=== PATIENT | female | born 1955 | race Caucasian/White ===

== ENCOUNTER 2018-05-01 18:08 | Observation (INO) ==
[2018-05-01] MEDS ORDERED: 0.9 % Sodium Chloride 1,000 ML IVC ONE (18:34)
[2018-05-01] MEDS ORDERED: *HR* FentaNYL (PF) 100 MCG/2 ML VIAL IVP ONE (18:34)
[2018-05-01 18:36] LABS: Bilirubin,Urine Small (Negative); Blood,Urine Large (Negative); Clarity,Urine Cloudy (Clear); Color,Urine Red (Yellow); Glucose,Urine (UA) Normal (Normal); Ketones,Urine 15 mg/dL (Negative); Leukocyte Esterase,Urine Moderate (Negative); Nitrite,Urine Positive (Negative); Protein,Urine 30 mg/dL (Neg-Trace); Specific Gravity,Urine 1.024 (1.010-1.025); Urobilinogen,Urine Normal (Normal)
[2018-05-01 18:37] LABS: Hyaline Casts,Urine None Seen per lpf (None-Few); RBC,Urine TNTC per hpf (0-3); Squamous Epithelial Cell,Urine Many per lpf (None-Few); WBC,Urine 15-30 per hpf (0-3)
--- NOTE | 2018-05-01 18:37 | Emergency Department Note ---
Disposition Clinical Impression: Ureteral calculus, right Urinary tract infection Qualifiers: Urinary tract infection type: site unspecified Hematuria presence: with hematuria Qualified Code(s): N39.0 - Urinary tract infection, site not specified Disposition: Admitted As Inpatient Condition: Good Referrals: NONE,PCP [Primary Care Provider] - Time of Disposition: 20:33 Abdominal Pain HPI - General Stated Complaint: abd pain Time Seen by Provider: 05/01/18 18:12 Source: patient, family () Mode of arrival: ambulatory Limitations: no limitations Nursing Notes Reviewed: Yes Vital Signs Reviewed: Yes - History of Present Illness HPI Narrative: 62-year-old female history of diabetes presents emergency department with abdominal and flank pain. She states around 1400 she felt a sharp pain on the right side of her abdomen that seem to go to her right back. She has been having difficulty urinating. Over the past few days she has has some dysuria and took Pyridium. She reports episode of nausea and vomiting. She denies any fever or recent illness. Denies any chest pain shortness of breath. She reports a history of kidney stones but typically they have been on the left. At that time it was able to pass on its own. She denies any burning with urination or hematuria. Patient gave a urine sample prior to my valuation is states her pain has significantly improved and she believes it may have past. She states is just slightly sore. History of cholecystectomy and total hysterectomy. Pt Subjective Complaint: abdominal pain, flank pain - Related Data Home Medications Medication Instructions Recorded Confirmed Albuterol Neb [Proventil Neb] 2.5 mg IH Q4HR PRN 07/08/16 07/08/16 Cetirizine HCl [Zyrtec] 10 mg PO DAILY 07/08/16 07/08/16 Cholecalciferol (Vitamin D3) 10,000 unit PO MO 07/08/16 07/08/16 [Vitamin D3] Diltiazem [Cardizem] 90 mg PO BID 07/08/16 07/08/16 EPINEPHrine [Epipen] 0.3 mg IJ ONCE PRN 07/08/16 07/08/16 Esomeprazole Magnesium [Nexium] 40 mg PO BID 07/08/16 07/08/16 FLUoxetine HCl [Prozac] 40 mg PO DAILY 07/08/16 07/08/16 Metaxalone [Skelaxin] 800 mg PO TID 07/08/16 07/08/16 Metformin HCl [Glucophage] 1,000 mg PO BID 07/08/16 07/08/16 Montelukast [Singulair] 10 mg PO HS 07/08/16 07/08/16 Phenazopyridine HCl [Pyridium] 200 mg PO TIDAC PRN 07/08/16 07/08/16 hydrOXYzine HCl [Hydroxyzine HCl] 25 mg PO Q8H 07/08/16 07/08/16 hydroCHLOROthiazide 25 mg PO DAILY 07/08/16 07/08/16 [Hydrochlorothiazide] traMADol [Ultram] 50 mg PO TID PRN 07/08/16 07/08/16 Previous Rx's Medication Instructions Recorded traMADol [Ultram] 50 mg PO Q6HR PRN #30 tablet 07/08/16 Allergies Allergy/AdvReac Type Severity Reaction Status Date / Time Amoxicillin [From Augmentin] AdvReac Nausea Verified 07/08/16 12:22 aspirin [From Percodan] AdvReac Itching Verified 07/08/16 12:22 clavulanic acid AdvReac Nausea Verified 07/08/16 12:22 [From Augmentin] Iodinated Contrast- Oral and AdvReac Anaphylaxis Verified 07/08/16 12:22 IV Dye meperidine [From Demerol] AdvReac Itching Verified 07/08/16 12:22 metronidazole [From Flagyl] AdvReac Cramping Verified 07/08/16 12:22 of the Muscles Oxycodone [From Percodan] AdvReac Itching Verified 07/08/16 12:22 sulfamethoxazole AdvReac Difficulty Verified 07/08/16 12:22 [From Bactrim] Breathing tetracaine AdvReac Itching Verified 07/08/16 12:22 trimethoprim [From Bactrim] AdvReac Difficulty Verified 07/08/16 12:22 Breathing All systems ED: reviewed and negative except as stated. Review of Systems: As Per HPI Constitutional: Denies: fever, chills ENT ED: Denies: congestion Cardiovascular: Denies: chest pain Respiratory: Denies: cough, dyspnea Gastrointestinal: Reports: abdominal pain, nausea, vomiting. Denies: diarrhea, melena, hematochezia Genitourinary: Reports: dysuria. Denies: urgency, hematuria Musculoskeletal: Reports: back pain. Denies: neck pain Integumentary: Denies: rash, abrasion Neurological: Denies: headache Abdominal Pain PMH - Past Medical History Medical history: Reports: asthma, DVT, diabetes, hyperlipidemia, hypertension Female Surgical History: Reports: cholecystectomy, hysterectomy Psychiatric history: Reports: depression - Social History Smoking status: Never smoker Alcohol use: Reports: none Drug use: Reports: none Physical Exam - General Limitations: no limitations General appearance: alert, in no apparent distress, obese - Head Head exam: atraumatic, normocephalic, normal inspection - Eye Eye exam: Present: normal appearance, PERRL, EOMI - ENT ENT exam: normal exam, normal oropharynx, mucous membranes moist - Neck Neck exam: Present: normal inspection, full ROM, trachea midline - Chest Chest inspection: Present: normal inspection, symmetric chest wall rise. Absent : tenderness, rash - Respiratory Respiratory exam: Present: normal lung sounds bilaterally. Absent: respiratory distress, wheezes - Cardiovascular Cardiovascular exam: Present: regular rate, normal rhythm, normal heart sounds. Absent: systolic murmur, diastolic murmur - Abdominal Exam Abdominal exam: Present: soft (Obese abdomen), tenderness, normal bowel sounds. Absent: distention, guarding, rebound, rigidity, psoas sign, Mcgregor's sign, Rovsing's sign, tenderness at McBurney's Point Abdominal tenderness: Present: RLQ - Extremities Exam Extremities exam: Present: normal inspection, full ROM, normal capillary refill. Absent: tenderness, pedal edema - Back Exam Back exam: Present: normal inspection, full ROM, CVA tenderness (R). Absent: tenderness, CVA tenderness (L) - Neurological Exam Neurological exam: Present: alert, oriented X3 - Psychiatric Psychiatric exam: Present: normal affect, normal mood - Skin Skin exam: Present: warm, dry, intact, normal color. Absent: rash, cyanosis, diaphoresis Course Course Narrative: Patient presents with pain located in the right lower quadrant. History of cholecystectomy and hysterectomy. Report episode nausea vomiting. History of kidney stone. She had some mild CVA tenderness on examination. She provided urinalysis and reports improvement of pain. Will check some basic labs urinalysis and scan to evaluate for possible kidney stone. Patients in agreement with this plan. Will give her some IV fluids and fentanyl for pain. Patients in agreement with this plan. - Reevaluation(s) Reevaluation #1: Urinalysis appears consistent with infection. She has a white count of 18. No signs of renal insufficiency. She is diabetic and CT showed a 2 mm stone in the right UVJ with right hydronephrosis. Pain is controlled with medication. We discussed the case with the on-call urologist to recommends admission for this infected stone given that she is a diabetic with the elevated leukocytosis. Patient does not appear septic however we will check set of blood culture and lactate. Patient is in agreement with admission. Impression is urinary tract infection and ureteral calculus. Time: 20:29 - Consultations Consultation #1: Consulted with urology on-call Dr. Duggan who agrees for admission for urinary infection and kidney stone. Will consult to the floor and recommend medicine admission. Time: 20:05 Consultation #2: Spoke with on-call hospitalist salvador De Paz to admit for urinary tract infection and ureteral stone. No further orders at this time. Patient has been placed on Levaquin. Time: 20:46 Vital Signs Temperature 97.9 F 05/01/18 20:11 Pulse Rate 64 05/01/18 20:11 Respiratory Rate 18 05/01/18 20:11 Blood Pressure 142/82 05/01/18 20:11 O2 Sat by Pulse Oximetry 95 05/01/18 20:11 Temperature 97.9 F 05/01/18 20:11 Pulse Rate 64 05/01/18 20:11 Respiratory Rate 18 05/01/18 20:11 Blood Pressure 142/82 05/01/18 20:11 O2 Sat by Pulse Oximetry 95 05/01/18 20:11 Oxygen Delivery Oxygen Delivery Room Air Abdominal Pain - MDM Narrative Medical decision making narrative: Patient was discussed with my attending physician who agrees with ED management and final disposition. They independently evaluated the patient. Please refer to their attestation to this encounter for additional information. This note was generated by [employer] voice recognition software and as a result grammatical or spelling errors may occur using this program. - Medical Records Medical records reviewed: Yes I reviewed the patient's medical records. - Lab Data Lab results reviewed: Yes I reviewed the patient's lab results. Result diagrams: 05/01/18 19:15 05/01/18 19:15 Lab Results 05/01/18 05/01/18 05/01/18 Range/Units 18:25 19:15 19:15 WBC 18.7 H (4.3-11.1) K/mcL RBC 4.77 (3.82-4.97) M/mcL Hgb 13.4 (11.5-15.4) g/dL Hct 39.9 (35.3-44.9) % MCV 83.6 (83.0-100.0) fL MCH 28.1 (28.0-33.3) pg MCHC 33.6 (31.6-35.5) g/dL RDW 15.1 H (11.5-14.5) % Plt Count 399 (140-400) K/mcL MPV 10.1 (9.4-12.4) fL Immature Gran % 0.7 (0-4) % Seg Neutrophils % 74.6 % Lymphocytes % 16.7 % Monocytes % 7.1 % Eosinophils % 0.4 % Basophils % 0.5 % Neutrophils # 14.0 H (1.6-8.9) K/mcL Lymphocytes # 3.1 (0.6-4.6) K/mcL Monocytes # 1.3 (0.0-1.3) K/mcL Eosinophils # 0.1 (0.0-0.6) K/mcL Basophils # 0.1 (0.0-0.2) K/mcL Sodium 138 (136-145) mEq/L Potassium 4.6 (3.5-5.1) mEq/L Chloride 102 (98-107) mEq/L Carbon Dioxide 25 (23-29) mEq/L BUN 21 (8-23) mg/dL Creatinine 1.09 (0.60-1.20) mg/dL Est GFR ( Amer) > 60 (> 60) Est GFR (Non-Af Amer) 51 L (> 60) BUN/Creatinine Ratio 19 (6-26) Glucose 150 H (70-105) mg/dL Calculated Osmolality 292 (280-300) Calcium 9.8 (8.6-10.3) mg/dL Total Bilirubin 0.3 (0.3-1.0) mg/dL Direct Bilirubin 0.0 (0.0-0.2) mg/dL Indirect Bilirubin 0.3 (0.0-1.2) mg/dL AST 24 (13-39) Units/L ALT 39 (7-52) Units/L Alkaline Phosphatase 96 (34-104) Units/L Serum Total Protein 6.8 (6.4-8.9) g/dL Albumin 4.7 (3.5-5.7) g/dL Globulin 2.1 L (2.4-3.5) g/dL Albumin/Globulin Ratio 2.2 (1.1-2.2) Lipase 54 (11-82) Units/L Urine Color Red A (Yellow) Urine Clarity Cloudy A (Clear) Urine pH 5.0 (5.0-8.0) pH Units Ur Specific [place] 1.024 (1.010-1.025) Urine Protein 30 H (Neg-Trace) mg/dL Urine Glucose (UA) Normal (Normal) mg/dL Urine Ketones 15 H (Negative) mg/dL Urine Blood Large H (Negative) Urine Nitrite Positive A (Negative) Urine Bilirubin Small H (Negative) Urine Urobilinogen Normal (Normal) mg/dL Ur Leukocyte Esterase Moderate H (Negative) Urine Microscopic RBC TNTC H (0-3) per hpf Urine Microscopic WBC 15-30 H (0-3) per hpf Ur Squamous Epith Cells Many H (None-Few) per lpf Urine Bacteria Few (None-Few) per hpf Hyaline Casts None Seen (None-Few) per lpf Ur Culture Indicated? NO. A (NO) - Radiology Data Radiology results reviewed: Yes I reviewed the patient's radiology results. Abdomen/Pelvis CT 05/01/18 18:33 IMPRESSION: Mild right hydronephrosis secondary to a punctate calculus at the right UVJ. D/ / Ashu Mendez MD / Ashu Mendez MD Interpreting Provider: Ashu Mendez MD Attestation Statement - Attestation Attestation: I, Aldo Childress DO, examined this patient [id number] and my medical decision-making was reviewed with Balaji Andrade DO , Resident Physician. I agree with the documented findings, disposition and treatment plan as described except to the extent set forth below. Please see my progress notes for details.
[2018-05-01 18:57] LABS: Bacteria,Urine Few per hpf (None-Few)
[2018-05-01 19:26] LABS: Basophils # 0.1 K/mcL (0.0-0.2); Basophils % 0.5 %; Eosinophils # 0.1 K/mcL (0.0-0.6); Eosinophils % 0.4 %; Hematocrit 39.9 % (35.3-44.9); Hemoglobin 13.4 g/dL (11.5-15.4); Immature Granulocytes % 0.7 % (0-4); Lymphocytes # 3.1 K/mcL (0.6-4.6); Lymphocytes % 16.7 %; Mean Corpuscular HGB Conc 33.6 g/dL (31.6-35.5); Mean Corpuscular Hemoglobin 28.1 pg (28.0-33.3); Mean Corpuscular Volume 83.6 fL (83.0-100.0); Mean Platelet Volume 10.1 fL (9.4-12.4); Monocytes # 1.3 K/mcL (0.0-1.3); Monocytes % 7.1 %; Platelet Count 399 K/mcL (140-400); Red Blood Count 4.77 M/mcL (3.82-4.97); Red Cell Distribution Width 15.1 % (11.5-14.5); Segmented Neutrophils % 74.6 %
--- NOTE | 2018-05-01 19:36 | Emergency Department Note ---
Disposition Clinical Impression: Renal stone, Hydroureter Urinary tract infection Qualifiers: Urinary tract infection type: site unspecified Hematuria presence: with hematuria Qualified Code(s): N39.0 - Urinary tract infection, site not specified Disposition: Admitted As Inpatient Condition: Fair Referrals: NONE,PCP [Primary Care Provider] - Time of Disposition: 20:56 General Adult HPI - General Stated complaint: abd pain Time Seen by Provider: 05/01/18 18:12 Source: patient, family () Mode of arrival: ambulatory Limitations: no limitations - Related Data Home Medications Medication Instructions Recorded Confirmed Albuterol Neb [Proventil Neb] 2.5 mg IH Q4HR PRN 07/08/16 07/08/16 Cetirizine HCl [Zyrtec] 10 mg PO DAILY 07/08/16 07/08/16 Cholecalciferol (Vitamin D3) 10,000 unit PO MO 07/08/16 07/08/16 [Vitamin D3] Diltiazem [Cardizem] 90 mg PO BID 07/08/16 07/08/16 EPINEPHrine [Epipen] 0.3 mg IJ ONCE PRN 07/08/16 07/08/16 Esomeprazole Magnesium [Nexium] 40 mg PO BID 07/08/16 07/08/16 FLUoxetine HCl [Prozac] 40 mg PO DAILY 07/08/16 07/08/16 Metaxalone [Skelaxin] 800 mg PO TID 07/08/16 07/08/16 Metformin HCl [Glucophage] 1,000 mg PO BID 07/08/16 07/08/16 Montelukast [Singulair] 10 mg PO HS 07/08/16 07/08/16 Phenazopyridine HCl [Pyridium] 200 mg PO TIDAC PRN 07/08/16 07/08/16 hydrOXYzine HCl [Hydroxyzine HCl] 25 mg PO Q8H 07/08/16 07/08/16 hydroCHLOROthiazide 25 mg PO DAILY 07/08/16 07/08/16 [Hydrochlorothiazide] traMADol [Ultram] 50 mg PO TID PRN 07/08/16 07/08/16 Previous Rx's Medication Instructions Recorded traMADol [Ultram] 50 mg PO Q6HR PRN #30 tablet 07/08/16 Allergies Allergy/AdvReac Type Severity Reaction Status Date / Time Amoxicillin [From Augmentin] AdvReac Nausea Verified 07/08/16 12:22 aspirin [From Percodan] AdvReac Itching Verified 07/08/16 12:22 clavulanic acid AdvReac Nausea Verified 07/08/16 12:22 [From Augmentin] Iodinated Contrast- Oral and AdvReac Anaphylaxis Verified 07/08/16 12:22 IV Dye meperidine [From Demerol] AdvReac Itching Verified 07/08/16 12:22 metronidazole [From Flagyl] AdvReac Cramping Verified 07/08/16 12:22 of the Muscles Oxycodone [From Percodan] AdvReac Itching Verified 07/08/16 12:22 sulfamethoxazole AdvReac Difficulty Verified 07/08/16 12:22 [From Bactrim] Breathing tetracaine AdvReac Itching Verified 07/08/16 12:22 trimethoprim [From Bactrim] AdvReac Difficulty Verified 07/08/16 12:22 Breathing Constitutional: Denies: fever, chills ENT ED: Denies: congestion Cardiovascular: Denies: chest pain Respiratory: Denies: cough, dyspnea Gastrointestinal: Reports: abdominal pain, nausea, vomiting. Denies: diarrhea, melena, hematochezia Genitourinary: Reports: dysuria. Denies: urgency, hematuria Musculoskeletal: Reports: back pain. Denies: neck pain Integumentary: Denies: rash, abrasion Neurological: Denies: headache Past Medical History - Past Medical History Medical history: Reports: asthma, DVT, diabetes, hyperlipidemia, hypertension Surgical history: Reports: hysterectomy, other Psychiatric history: Reports: depression - Social History Smoking Status: Never smoker Smokeless Tobacco Status: No Alcohol use: Reports: none Drug use: Reports: none Physical Exam - General Limitations: no limitations General appearance: alert, in no apparent distress, obese Course Vital Signs Temperature 97.9 F 05/01/18 20:11 Pulse Rate 64 05/01/18 20:11 Respiratory Rate 18 05/01/18 20:11 Blood Pressure 142/82 05/01/18 20:11 O2 Sat by Pulse Oximetry 95 05/01/18 20:11 Temperature 97.9 F 05/01/18 20:11 Pulse Rate 64 05/01/18 20:11 Respiratory Rate 18 05/01/18 20:11 Blood Pressure 142/82 05/01/18 20:11 O2 Sat by Pulse Oximetry 95 05/01/18 20:11 Oxygen Delivery Oxygen Delivery Room Air Medical Decision Making - Lab Data Result diagrams: 05/01/18 19:15 05/01/18 19:15 Lab Results 05/01/18 05/01/18 05/01/18 Range/Units 18:25 19:15 19:15 WBC 18.7 H (4.3-11.1) K/mcL RBC 4.77 (3.82-4.97) M/mcL Hgb 13.4 (11.5-15.4) g/dL Hct 39.9 (35.3-44.9) % MCV 83.6 (83.0-100.0) fL MCH 28.1 (28.0-33.3) pg MCHC 33.6 (31.6-35.5) g/dL RDW 15.1 H (11.5-14.5) % Plt Count 399 (140-400) K/mcL MPV 10.1 (9.4-12.4) fL Immature Gran % 0.7 (0-4) % Seg Neutrophils % 74.6 % Lymphocytes % 16.7 % Monocytes % 7.1 % Eosinophils % 0.4 % Basophils % 0.5 % Neutrophils # 14.0 H (1.6-8.9) K/mcL Lymphocytes # 3.1 (0.6-4.6) K/mcL Monocytes # 1.3 (0.0-1.3) K/mcL Eosinophils # 0.1 (0.0-0.6) K/mcL Basophils # 0.1 (0.0-0.2) K/mcL Sodium 138 (136-145) mEq/L Potassium 4.6 (3.5-5.1) mEq/L Chloride 102 (98-107) mEq/L Carbon Dioxide 25 (23-29) mEq/L BUN 21 (8-23) mg/dL Creatinine 1.09 (0.60-1.20) mg/dL Est GFR ( Amer) > 60 (> 60) Est GFR (Non-Af Amer) 51 L (> 60) BUN/Creatinine Ratio 19 (6-26) Glucose 150 H (70-105) mg/dL Calculated Osmolality 292 (280-300) Calcium 9.8 (8.6-10.3) mg/dL Total Bilirubin 0.3 (0.3-1.0) mg/dL Direct Bilirubin 0.0 (0.0-0.2) mg/dL Indirect Bilirubin 0.3 (0.0-1.2) mg/dL AST 24 (13-39) Units/L ALT 39 (7-52) Units/L Alkaline Phosphatase 96 (34-104) Units/L Serum Total Protein 6.8 (6.4-8.9) g/dL Albumin 4.7 (3.5-5.7) g/dL Globulin 2.1 L (2.4-3.5) g/dL Albumin/Globulin Ratio 2.2 (1.1-2.2) Lipase 54 (11-82) Units/L Urine Color Red A (Yellow) Urine Clarity Cloudy A (Clear) Urine pH 5.0 (5.0-8.0) pH Units Ur Specific [place] 1.024 (1.010-1.025) Urine Protein 30 H (Neg-Trace) mg/dL Urine Glucose (UA) Normal (Normal) mg/dL Urine Ketones 15 H (Negative) mg/dL Urine Blood Large H (Negative) Urine Nitrite Positive A (Negative) Urine Bilirubin Small H (Negative) Urine Urobilinogen Normal (Normal) mg/dL Ur Leukocyte Esterase Moderate H (Negative) Urine Microscopic RBC TNTC H (0-3) per hpf Urine Microscopic WBC 15-30 H (0-3) per hpf Ur Squamous Epith Cells Many H (None-Few) per lpf Urine Bacteria Few (None-Few) per hpf Hyaline Casts None Seen (None-Few) per lpf Ur Culture Indicated? NO. A (NO) Attestation Statement - Attestation Attestation: I, Aldo Childress DO, examined this patient [id number] and my medical decision-making was reviewed with Balaji Andrade DO , Resident Physician. I agree with the documented findings, disposition and treatment plan as described except to the extent set forth below. Please see my progress notes for details. 62-year-old female presents emergency room with right-sided abdominal pain and flank pain. Currently she denies any fevers or chills chest pain shortness of breath headache vision changes nausea vomiting or diarrhea. She has mild right- sided flank pain that radiates down of the right groin. She has a history of renal stones with her typically on the left side of the abdomen dated she had on the right side before. She is a known kidney stone of the apices of the right kidney. Patient denies any blood in her urine. Denies any concern for urinary tract infection at this point. Otherwise her vital signs are stable. Patient does appear to have some mild discomfort she felt she passed something here earlier in the emergency room and her urine does have a dark colored tinge to it concerning for possible blood. Patient was symptomatic control surgery with fluids pain medication nausea medication as needed. CT imaging the abdomen will be added on considering the patient has not had a stone on that side and the symptoms are down in the right lower quadrant of the abdomen at this point. Otherwise she has had surgeries to remove her uterus as well as her gallbladder. CBC chemistry urinalysis along with liver function testing lipase also be added on. Disposition pending the full workup treatment course and evaluation. She is denying any chest pain or other symptoms at this point patient is most concerning for renal colic versus urinary tract infection. Disposition pending treatment course and evaluation. See detailed documentation of the physical exam, medical intervention, medical decision- making and disposition in the resident physician's note. 194 Patient found to have a small 2-3 mm stone at the UVJ the right ureter. There is mild hydronephrosis. Patient also has contaminated urine with positive nitrites it is concerning for infectious etiology at this point. Patient is waiting for renal function be resulted and this will be discussed with the on- call urologist make sure they feel comfortable with the patient home with appropriate hematocrit abdomen. Patient is afebrile here does not have any specific CVA tenderness or concern for pyelonephritis based on physical exam with a CT scan at this point. Patient is otherwise resting comfortably. Disposition pending the laboratory workup and consultation. 2024 Patient found to have urinalysis is concerning for infection. This was discussed with the urologist. Because of patient being diabetic and overweight blood cell count along with the stone and hydronephrosis recommended admission. [facility] patient admission process to be completed at this point. Otherwise patient is currently stable. Antibiotics ordered at this time. Patient was provided with fluids while here. She does not appear to be septic she has no real complaints at this time outside of the lower abdominal cramping and discomfort. Admission process to be completed. Patient is otherwise clinically stable.
[2018-05-01 19:53] LABS: Alanine Aminotransferase 39 Units/L (7-52); Albumin 4.7 g/dL (3.5-5.7); Albumin/Globulin Ratio 2.2 (1.1-2.2); Alkaline Phosphatase 96 Units/L (34-104); Aspartate Amino Transferase 24 Units/L (13-39); BUN/Creatinine Ratio 19 (6-26); Bilirubin,Indirect 0.3 mg/dL (0.0-1.2); Bilirubin,Total 0.3 mg/dL (0.3-1.0); Blood Urea Nitrogen 21 mg/dL (8-23); Calcium 9.8 mg/dL (8.6-10.3); Carbon Dioxide 25 mEq/L (23-29); Chloride 102 mEq/L (98-107); Globulin 2.1 g/dL (2.4-3.5); Glucose 150 mg/dL (70-105); Lipase 54 Units/L (11-82); Osmolality,Calculated 292 (280-300); Potassium 4.6 mEq/L (3.5-5.1); Sodium 138 mEq/L (136-145); Total Protein 6.8 g/dL (6.4-8.9); eGFR For African Americans > 60 (> 60); eGFR For Non-African Americans 51 (> 60)
[2018-05-01] MEDS ORDERED: Levofloxacin 750 MG/150 ML 750 MG/150 ML BAG IVPB ONE (20:08)
[2018-05-01] MEDS ORDERED: Naloxone 0.4 MG/ML INJ IVP PRN (22:04)
--- NOTE | 2018-05-01 23:13 | Internal Med History&Physical ---
Date of Encounter: 05/01/18 Time of Encounter: 22:00 Internal Medicine - H&P: HPI Chief complaint: Right-sided ureteral colic Admitted From: Emergency Dept Plans for Post Hospital Care: Home History of present illness: Ms. Kate is a 62 year old female patient with a history of nephrolithiasis, chronic kidney disease, diabetes, hypertension and hyperlipidemia who presented to the ER with complaints of pain in her right flank and groin region. This began earlier today. She is aware of having a kidney stone in her right kidney and was concerned that it was passing so she decided to come to the ER. She did not have any fevers or chills but the pain was very severe. She also began to have pain in the right lower back in the ER. She was given IV fluids and fentanyl in the ER with some relief of her pain. 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 She is now feeling much better. Past Med Surg Social Fam HX - Past Medical History Medical history: asthma, DVT, diabetes, hyperlipidemia, hypertension Additional medical history: IBS Psychiatric history: depression - Past Surgical History Surgical History: cholecystectomy, hysterectomy, sinus surgery Additional surgical history: tubal, left ankle surgery, sinus surgery. - Social History Smoking Status: Never smoker Smokeless Tobacco Status: No Alcohol use: none Drug use: none - Additional Family History Additional family history: Family history reviewed and found to be noncontributory at this time. Internal Medicine - H&P: Meds Albuterol Neb [Proventil Neb] 2.5 mg IH Q4HR PRN 07/08/16 [History] Cetirizine HCl [Zyrtec] 10 mg PO DAILY 07/08/16 [History] Cholecalciferol (Vitamin D3) [Vitamin D3] 10,000 unit PO MO 07/08/16 [History] Diltiazem [Cardizem] 90 mg PO BID 07/08/16 [History] EPINEPHrine [Epipen] 0.3 mg IJ ONCE PRN 07/08/16 [History] Esomeprazole Magnesium [Nexium] 40 mg PO BID 07/08/16 [History] FLUoxetine HCl [Prozac] 40 mg PO DAILY 07/08/16 [History] Metaxalone [Skelaxin] 800 mg PO TID 07/08/16 [History] Metformin HCl [Glucophage] 1,000 mg PO BID 07/08/16 [History] Montelukast [Singulair] 10 mg PO HS 07/08/16 [History] Phenazopyridine HCl [Pyridium] 200 mg PO TIDAC PRN 07/08/16 [History] hydrOXYzine HCl [Hydroxyzine HCl] 25 mg PO Q8H 07/08/16 [History] hydroCHLOROthiazide [Hydrochlorothiazide] 25 mg PO DAILY 07/08/16 [History] traMADol [Ultram] 50 mg PO Q6HR PRN #30 tablet 07/08/16 [Rx] traMADol [Ultram] 50 mg PO TID PRN 07/08/16 [History] 3 Allergy/AdvReac Type Severity Reaction Status Date / Time Amoxicillin [From Augmentin] AdvReac Nausea Verified 07/08/16 12:22 aspirin [From Percodan] AdvReac Itching Verified 07/08/16 12:22 clavulanic acid AdvReac Nausea Verified 07/08/16 12:22 [From Augmentin] Iodinated Contrast- Oral and AdvReac Anaphylaxis Verified 07/08/16 12:22 IV Dye meperidine [From Demerol] AdvReac Itching Verified 07/08/16 12:22 metronidazole [From Flagyl] AdvReac Cramping Verified 07/08/16 12:22 of the Muscles Oxycodone [From Percodan] AdvReac Itching Verified 07/08/16 12:22 sulfamethoxazole AdvReac Difficulty Verified 07/08/16 12:22 [From Bactrim] Breathing tetracaine AdvReac Itching Verified 07/08/16 12:22 trimethoprim [From Bactrim] AdvReac Difficulty Verified 07/08/16 12:22 Breathing All Systems PM: A 10-system review of systems was performed and is negative for pertinent findings except as documented above in the HPI. - Constitutional Constitutional: no chills, no fever(s), no night sweats - EENT Eyes: no change in vision, no discharge, no pain, no photophobia Ears: no ear discharge, no ear pain, no tinnitus Nose, mouth and throat: no dysphagia, no nasal discharge, no neck pain, no sore throat - Cardiovascular Cardiovascular ROS IM: no chest pain, no diaphoresis, no dyspnea, no lightheadedness, no palpitations, no syncope - Respiratory Respiratory: no cough, no dyspnea, no wheezing, no excessive phlegm production - Gastrointestinal Gastrointestinal: no abdominal pain, no diarrhea, no hematemesis, no hematochezia, no melena, no nausea, no vomiting - Genitourinary Genitourinary: flank pain - Musculoskeletal Musculoskeletal ROS IM: no numbness, no tingling - Integumentary Integumentary IM: no rash, no unusual bruising - Neurological Neurological ROS: no confusion, no convulsions, no focal weakness, no numbness, no tingling, no tremor(s) - Hematologic/Lymphatic Hematologic/Lymphatic: no easy bruising - Constitutional Vitals: Temp Pulse Resp BP Pulse Ox 98.2 F 63 16 142/65 96 05/01/18 21:28 05/01/18 21:28 05/01/18 21:28 05/01/18 21:28 05/01/18 21:32 General appearance: Present: cooperative, A&O X 3, pleasant, no acute distress, answers questions appropriately - Eye Eye exam: Present: conjuntiva pink, sclera anicteric - Neck Neck exam general surgery: Present: supple, trachea midline. Absent: lymphadenopathy - Respiratory Respiratory exam: Present: CTAB. Absent: accessory muscle use, rales, rhonchi, wheezes - Cardiovascular Cardiovascular exam: Present: RRR, +S1, +S2. Absent: diastolic murmur, gallop, rubs, systolic murmur - GI/Abdominal GI/Abdominal exam: Present: normal bowel sounds, soft, tenderness (Right lower quadrant), no peritoneal signs. Absent: distended - Extremities Exam Extremities exam: Present: warm, radial pulses palpable and symmetrical. Absent : calf tenderness, cyanotic, pedal edema - Back Exam Back exam: Absent: CVA tenderness (L), CVA tenderness (R) - Neurological Exam Neurological exam: Present: CN II-XII intact, oriented X3, no focal deficits. Absent: pronater drift, facial droop, speech deficit - Skin Skin exam: Present: dry, intact Internal Med - H&P Results - Labs CBC & Chem 7: 05/01/18 19:15 05/01/18 19:15 - Assessment and plan (1) Ureteral calculus, right Current Visit: Yes Status: Acute Assessment and plan: At right ureteropelvic junction with hydronephrosis. Urology consulted. We will follow recommendations. For now treat with IV fluids, supportive care. Pain control. (2) Urinary tract infection Current Visit: Yes Status: Acute Assessment and plan: With right ureteral stone. Patient has leukocytosis. Per urology recommendations, will place her on IV antibiotics. Follow culture results. Qualifiers: Urinary tract infection type: site unspecified Hematuria presence: with hematuria Qualified Code(s): N39.0 - Urinary tract infection, site not specified; R31.9 - Hematuria, unspecified (3) Essential hypertension Current Visit: Yes Status: Chronic Assessment and plan: Monitor blood pressure. Currently elevated likely due to pain. Will resume home medications. (4) Diabetes mellitus, type 2 Current Visit: Yes Status: Chronic Assessment and plan: monitor blood sugars. Diabetic diet. Sliding scale insulin Qualifiers: Diabetes mellitus hull sorter insulin use: without half-way use Diabetes mellitus complication status: with kidney complications Diabetes mellitus complication detail: with chronic kidney disease Chronic kidney disease stage : stage 2 (mild) Qualified Code(s): E11.22 - Type 2 diabetes mellitus with diabetic chronic kidney disease; N18.2 - Chronic kidney disease, stage 2 (mild) (5) Chronic kidney disease, stage II (mild) Current Visit: Yes Status: Chronic Assessment and plan: GFR 51, creatinine 1.09. Appears to be at baseline - Time Spent With Patient Total time spent is greater than 50% in coordination of care (as documented) at patient's floor/unit and/or counseling patient:
[2018-05-01] MEDS ORDERED: D5% in Water 1,000 ML IVC PRN (23:18)
[2018-05-01] MEDS ORDERED: Dextrose Gel 15 GM/37.5 ML TUBE PO PRN ×2 (23:18)
[2018-05-01] MEDS ORDERED: *HR* Dextrose 50 % in Water (Syg) 50 ML SYRINGE IVP PRN (23:18)
[2018-05-01] MEDS: Ringers Solution, Lactated 1,000 ML IVC SCH (23:59)
[2018-05-02] MEDS ORDERED: *HR* Heparin 5,000 UNIT/ML VIAL SQ SCH (06:00)
[2018-05-02 07:18] LABS: Basophils # 0.1 K/mcL (0.0-0.2); Basophils % 0.4 %; Eosinophils # 0.3 K/mcL (0.0-0.6); Eosinophils % 2.4 %; Hematocrit 35.5 % (35.3-44.9); Immature Granulocytes % 0.6 % (0-4); Lymphocytes # 4.6 K/mcL (0.6-4.6); Lymphocytes % 36.6 %; Mean Corpuscular HGB Conc 32.4 g/dL (31.6-35.5); Mean Corpuscular Hemoglobin 27.3 pg (28.0-33.3); Mean Corpuscular Volume 84.1 fL (83.0-100.0); Mean Platelet Volume 10.5 fL (9.4-12.4); Monocytes # 1.1 K/mcL (0.0-1.3); Monocytes % 8.4 %; Neutrophils # 6.5 K/mcL (1.6-8.9); Platelet Count 334 K/mcL (140-400); Red Blood Count 4.22 M/mcL (3.82-4.97); Red Cell Distribution Width 15.5 % (11.5-14.5); Segmented Neutrophils % 51.6 %
[2018-05-02 07:26] LABS: Hemoglobin 11.5 g/dL (11.5-15.4)
[2018-05-02 07:30] LABS: BUN/Creatinine Ratio 18 (6-26); Blood Urea Nitrogen 16 mg/dL (8-23); Calcium 9.1 mg/dL (8.6-10.3); Carbon Dioxide 25 mEq/L (23-29); Chloride 106 mEq/L (98-107); Glucose 127 mg/dL (70-105); Osmolality,Calculated 293 (280-300); Sodium 140 mEq/L (136-145); eGFR For African Americans > 60 (> 60); eGFR For Non-African Americans > 60 (> 60)
[2018-05-02] MEDS ORDERED: Insulin LISPRO 300 UNITS/3 ML VIAL SQ SCH ×2 (07:30→21:00)
--- NOTE | 2018-05-02 08:12 | Urology - Consult Note ---
Date of Encounter: 05/02/18 Time of Encounter: 08:10 - Assessment and Plan (1) Ureteral calculus, right Current Visit: Yes Status: Acute Assessment and plan: 62-year-old woman with a right distal ureteral stone. She was able to pass the stone today. She has been afebrile. I think it is reasonable to discharge her home today with oral levofloxacin. She can follow up me in 1-2 weeks to discuss treatment of her right-sided renal stone. (2) Urinary tract infection Current Visit: Yes Status: Acute Assessment and plan: Continue antibiotic. Okay to discharge home on levofloxacin. We will monitor her urine culture and change as necessary. Qualifiers: Urinary tract infection type: site unspecified Hematuria presence: with hematuria Qualified Code(s): N39.0 - Urinary tract infection, site not specified; R31.9 - Hematuria, unspecified Urology CN:HPI Consult date: 05/02/18 Reason for consult Urology: Other (Right ureteral stone UTI) History of present illness: 62-year-old woman presents with a history of right lower quadrant pain. The pain was severe yesterday and radiated to her groin. She reports a history of nephrolithiasis. She was concerned that she was passing a right-sided stone. She came to the emergency department. A CT scan showed a punctate right ureterovesical junction stone. In addition there was a right renal stone. Her urine was nitrite positive. She was admitted. Overnight, she reports that she passed her stone. She denies any fevers or chills. White blood cell count is improved today. Past Med Surg Social Fam HX - Past Medical History Medical history: asthma, DVT, diabetes, hyperlipidemia, hypertension Additional medical history: IBS Psychiatric history: depression - Past Surgical History Surgical History: cholecystectomy, hysterectomy, sinus surgery Additional surgical history: tubal, left ankle surgery, sinus surgery. - Social History Smoking Status: Never smoker Smokeless Tobacco Status: No Alcohol use: none Drug use: none - Family History Father Hx Family Genitourinary Disorders: Yes (Nephrolithiasis) Medications and Allergies Albuterol Neb [Proventil Neb] 2.5 mg IH Q4HR PRN 07/08/16 [History] Cetirizine HCl [Zyrtec] 10 mg PO DAILY 07/08/16 [History] Cholecalciferol (Vitamin D3) [Vitamin D3] 10,000 unit PO MO 07/08/16 [History] Diltiazem [Cardizem] 90 mg PO BID 07/08/16 [History] EPINEPHrine [Epipen] 0.3 mg IJ ONCE PRN 07/08/16 [History] Esomeprazole Magnesium [Nexium] 40 mg PO BID 07/08/16 [History] FLUoxetine HCl [Prozac] 40 mg PO DAILY 07/08/16 [History] Metaxalone [Skelaxin] 800 mg PO TID 07/08/16 [History] Metformin HCl [Glucophage] 1,000 mg PO BID 07/08/16 [History] Montelukast [Singulair] 10 mg PO HS 07/08/16 [History] Phenazopyridine HCl [Pyridium] 200 mg PO TIDAC PRN 07/08/16 [History] hydrOXYzine HCl [Hydroxyzine HCl] 25 mg PO Q8H 07/08/16 [History] hydroCHLOROthiazide [Hydrochlorothiazide] 25 mg PO DAILY 07/08/16 [History] traMADol [Ultram] 50 mg PO Q6HR PRN #30 tablet 07/08/16 [Rx] traMADol [Ultram] 50 mg PO TID PRN 07/08/16 [History] 3 Allergy/AdvReac Type Severity Reaction Status Date / Time Amoxicillin [From Augmentin] AdvReac Nausea Verified 07/08/16 12:22 aspirin [From Percodan] AdvReac Itching Verified 07/08/16 12:22 clavulanic acid AdvReac Nausea Verified 07/08/16 12:22 [From Augmentin] Iodinated Contrast- Oral and AdvReac Anaphylaxis Verified 07/08/16 12:22 IV Dye meperidine [From Demerol] AdvReac Itching Verified 07/08/16 12:22 metronidazole [From Flagyl] AdvReac Cramping Verified 07/08/16 12:22 of the Muscles Oxycodone [From Percodan] AdvReac Itching Verified 07/08/16 12:22 sulfamethoxazole AdvReac Difficulty Verified 07/08/16 12:22 [From Bactrim] Breathing tetracaine AdvReac Itching Verified 07/08/16 12:22 trimethoprim [From Bactrim] AdvReac Difficulty Verified 07/08/16 12:22 Breathing Review of Systems - Constitutional no chills, no fever(s) - EENT Nose, mouth and throat: no dizziness - Cardiovascular no chest pain - Respiratory no dyspnea - Gastrointestinal nausea - Genitourinary Genitourinary: flank pain, no hematuria - Musculoskeletal no back pain - Integumentary no erythema, no rash - Neurological no weakness - Psychiatric no suicidal ideation - Hematologic/Lymphatic no easy bleeding - Allergic/Immunologic no wheezing Exam Initial Vital Signs Temp Pulse Resp BP Pulse Ox 97.9 F 64 18 142/82 95 05/01/18 20:11 05/01/18 20:11 05/01/18 20:11 05/01/18 20:11 05/01/18 20:11 - General physical appearance Present: well developed, well nourished, no distress - Eyes Absent: icteric - ENT Present: normal nares - Neck Present: trachea midline - Respiratory Present: normal respiratory effort - Cardiovascular Cardiovascular exam IM: RRR - Abdomen Abdomen: Present: soft - Integumentary Present: no rash - Neurologic Present: normal coordination - Musculoskeletal Present: other (Grossly normal) Urology Results - Labs 05/02/18 06:04 05/02/18 06:04 Abnormal lab results WBC 12.6 K/mcL (4.3-11.1) H 05/02/18 06:04 MCH 27.3 pg (28.0-33.3) L 05/02/18 06:04 RDW 15.5 % (11.5-14.5) H 05/02/18 06:04 Glucose 127 mg/dL (70-105) H 05/02/18 06:04 Globulin 2.1 g/dL (2.4-3.5) L 05/01/18 19:15 Urine Color Red (Yellow) A 05/01/18 18:25 Urine Clarity Cloudy (Clear) A 05/01/18 18:25 Urine Protein 30 mg/dL (Neg-Trace) H 05/01/18 18:25 Urine Ketones 15 mg/dL (Negative) H 05/01/18 18:25 Urine Blood Large (Negative) H 05/01/18 18:25 Urine Nitrite Positive (Negative) A 05/01/18 18:25 Urine Bilirubin Small (Negative) H 05/01/18 18:25 Ur Leukocyte Esterase Moderate (Negative) H 05/01/18 18:25 Urine Microscopic RBC TNTC per hpf (0-3) H 05/01/18 18:25 Urine Microscopic WBC 15-30 per hpf (0-3) H 05/01/18 18:25 Ur Squamous Epith Cells Many per lpf (None-Few) H 05/01/18 18:25 Ur Culture Indicated? NO. (NO) A 05/01/18 18:25 Diabetes panel 05/02/18 Range/Units 06:04 Sodium 140 (136-145) mEq/L Potassium 4.0 (3.5-5.1) mEq/L Chloride 106 (98-107) mEq/L Carbon Dioxide 25 (23-29) mEq/L BUN 16 (8-23) mg/dL Creatinine 0.87 (0.60-1.20) mg/dL Glucose 127 H (70-105) mg/dL Calcium 9.1 (8.6-10.3) mg/dL Calcium panel 05/02/18 Range/Units 06:04 Calcium 9.1 (8.6-10.3) mg/dL Pituitary panel 05/02/18 Range/Units 06:04 Sodium 140 (136-145) mEq/L Potassium 4.0 (3.5-5.1) mEq/L Chloride 106 (98-107) mEq/L Carbon Dioxide 25 (23-29) mEq/L BUN 16 (8-23) mg/dL Creatinine 0.87 (0.60-1.20) mg/dL Glucose 127 H (70-105) mg/dL Calcium 9.1 (8.6-10.3) mg/dL Adrenal panel 05/02/18 Range/Units 06:04 Sodium 140 (136-145) mEq/L Potassium 4.0 (3.5-5.1) mEq/L Chloride 106 (98-107) mEq/L Carbon Dioxide 25 (23-29) mEq/L BUN 16 (8-23) mg/dL Creatinine 0.87 (0.60-1.20) mg/dL Glucose 127 H (70-105) mg/dL Calcium 9.1 (8.6-10.3) mg/dL All other labs normal. - Imaging CT scan - abdomen: report reviewed, image reviewed CT scan - pelvis: report reviewed, image reviewed Consult Discharge Plan - Plan
[2018-05-02 08:22] VITALS: BP 153/75
[2018-05-02] MEDS: Ringers Solution, Lactated 1,000 ML IVC SCH (08:36)
[2018-05-02] MEDS ORDERED: cefTRIAXone 1,000 MG in Water for inj. (sterile) 20 ML 10 ML IVP SCH (09:00)
[2018-05-02 09:38] LABS: Estimated Average Glucose 157 mg/dl; Hemoglobin A1C 7.1 %
--- NOTE | 2018-05-02 11:10 | Discharge Summary ---
- NOTES TO OUTPATIENT PROVIDER Notes to Outpatient Provider: Patient is a 60 due to female with a history of nephrolithiasis who presented to the right U VJ stone which she has passed while in the hospital. She also has a right nephrolithiasis for which she needs a follow-up with urology as an outpatient. She has been discharged with a short course of oral Levaquin and urine cultures are not back at the time of discharge. These will need to be followed up closely as an outpatient to make sure that she is appropriately treated. Orders not resulted at time of discharge: Pending orders 05/01/18 23:18 Hgb A1C Routine Date of Encounter: 05/02/18 Time of Encounter: 11:08 - Discharge Diagnosis (1) Urinary tract infection Priority: Primary Status: Acute Qualifiers: Urinary tract infection type: site unspecified Hematuria presence: with hematuria Qualified Code(s): N39.0 - Urinary tract infection, site not specified; R31.9 - Hematuria, unspecified (2) Ureteral calculus, right Priority: Secondary Status: Acute (3) Essential hypertension Priority: Secondary Status: Chronic (4) Diabetes mellitus, type 2 Priority: Secondary Status: Chronic Qualifiers: Diabetes mellitus long-term insulin use: without long-term use Diabetes mellitus complication status: with kidney complications Diabetes mellitus complication detail: with chronic kidney disease Chronic kidney disease stage : stage 2 (mild) Qualified Code(s): E11.22 - Type 2 diabetes mellitus with diabetic chronic kidney disease; N18.2 - Chronic kidney disease, stage 2 (mild) (5) Chronic kidney disease, stage II (mild) Priority: Secondary Status: Chronic Hospital course: Ms. Kate is a 62 year old female Discharge discussed with: patient - Time Spent with Patient Total time spent providing and/or coordinating discharge services: Greater than 30 minutes - Discharge Medications Home Medications: Albuterol Neb [Proventil Neb] 2.5 mg IH Q4HR PRN 07/08/16 [History] Cetirizine HCl [Zyrtec] 10 mg PO DAILY 07/08/16 [History] Cholecalciferol (Vitamin D3) [Vitamin D3] 10,000 unit PO MO 07/08/16 [History] Diltiazem [Cardizem] 90 mg PO BID 07/08/16 [History] EPINEPHrine [Epipen] 0.3 mg IJ ONCE PRN 07/08/16 [History] Esomeprazole Magnesium [Nexium] 40 mg PO BID 07/08/16 [History] FLUoxetine HCl [Prozac] 40 mg PO DAILY 07/08/16 [History] Metaxalone [Skelaxin] 800 mg PO TID 07/08/16 [History] Metformin HCl [Glucophage] 1,000 mg PO BID 07/08/16 [History] Montelukast [Singulair] 10 mg PO HS 07/08/16 [History] Phenazopyridine HCl [Pyridium] 200 mg PO TIDAC PRN 07/08/16 [History] hydrOXYzine HCl [Hydroxyzine HCl] 25 mg PO Q8H 07/08/16 [History] hydroCHLOROthiazide [Hydrochlorothiazide] 25 mg PO DAILY 07/08/16 [History] Allergies/Adverse Reactions: 3 Allergy/AdvReac Type Severity Reaction Status Date / Time Amoxicillin [From Augmentin] AdvReac Nausea Verified 07/08/16 12:22 aspirin [From Percodan] AdvReac Itching Verified 07/08/16 12:22 clavulanic acid AdvReac Nausea Verified 07/08/16 12:22 [From Augmentin] Iodinated Contrast- Oral and AdvReac Anaphylaxis Verified 07/08/16 12:22 IV Dye meperidine [From Demerol] AdvReac Itching Verified 07/08/16 12:22 metronidazole [From Flagyl] AdvReac Cramping Verified 07/08/16 12:22 of the Muscles Oxycodone [From Percodan] AdvReac Itching Verified 07/08/16 12:22 sulfamethoxazole AdvReac Difficulty Verified 07/08/16 12:22 [From Bactrim] Breathing tetracaine AdvReac Itching Verified 07/08/16 12:22 trimethoprim [From Bactrim] AdvReac Difficulty Verified 07/08/16 12:22 Breathing Date of admission: 05/01/18 21:05 Primary care physician: PCP NONE - Constitutional Vitals: Temp Pulse Resp BP Pulse Ox 98.0 F 65 16 153/75 96 05/02/18 08:20 05/02/18 08:20 05/02/18 08:20 05/02/18 08:20 05/02/18 08:20 General appearance: Present: cooperative, A&O X 3, pleasant, no acute distress, answers questions appropriately Exam: GENERAL: Alert, no distress, cooperative EYES: PERRLA, EOMI EARS: External ears normal, canals clear OROPHARYNX: Lips, mucosa, and tongue normal. Teeth and gums normal. Oropharynx normal. NECK: No jugulovenous distention, No carotid bruits, Carotid pulse normal contour, Supple LUNGS: Lungs clear to auscultation, Good diaphragmatic excursion CARDIAC: Normal S1 and S2; no rubs, murmurs, or gallops ABDOMEN: Abdomen soft, non-tender, BS normal, No masses or organomegaly EXTREMITIES: Extremities normal, no deformities, edema, clubbing or skin discoloration. Good capillary refill., No ulcers NEURO: Gait normal. Reflexes normal and symmetric. Sensation grossly intact, Cranial nerves II-XII intact PULSES: 2+ radial, 2+ carotid Rest of the exam is non contributory - Patient Status Disposition: Home, Self-Care Condition: Good - Discharge Instructions Instructions: Urinary Tract Infection in Women (DC) Follow Up With: NONE,PCP [Primary Care Provider] - Forms: ED Satisfaction Letter, Work/School Release - Diet and Activity Activity: resume usual activities as tolerated Diet: advance to your usual diet
== END 2018-05-02 11:53 | disposition home or self-care (01) ==
LOC: EMEROO 18:08 → 3ANU 18:08 → SUATTDRO 21:05 → 3ANU 21:18
PROVIDERS: ADMIT Internal Medicine; ATTEND Internal Medicine